=== PATIENT | male | born 1980 | race Caucasian/White ===

== ENCOUNTER 2016-11-04 14:40 | Inpatient (IN) | payer OTHER ==
[2016-11-04 15:53] VITALS: BMI 18.3
--- NOTE | 2016-11-04 17:11 | HP ---
CIWA Score - CIWA Score Nausea/Vomitin-Mild Nausea/No Vomiting Muscle Tremors: 4-Moderate,w/Arms Extend Anxiety: 4-Mod. Anxious/Guarded Agitation: 4-Moderately Restless Paroxysmal Sweats: 1-Minimal Palms Moist Orientation: 1-Uncertain about Date Tacttile Disturbances: 0-None Auditory Disturbances: 0-None Visual Disturbances: 0-None Headache: 0-None Present CIWA-Ar Total Score: 15 Admission ROS BHS - HPI Chief Complaint: withdrawal sx Allergies/Adverse Reactions: Allergies Allergy/AdvReac Type Severity Reaction Status Date / Time No Known Allergies Allergy Verified 11/05/16 00:43 History of Present Illness: 36 years old male with long history of alcohol nicotine dependence has bipolar ii and on methadone maintenance program 90 mg is admitted to detox Exam Limitations: No Limitations - Ebola screening Have you traveled outside of the country in the last 21 days: No Have you had contact with anyone from an Ebola affected area: No Have you been sick,other than usual withdrawal symptoms: No Do you have a fever: No - Review of Systems Constitutional: Chills, Loss of Appetite, Changes in sleep, Unintentional Wgt. Loss, Unexplained wgt Loss EENT: reports: No Symptoms Reported Respiratory: reports: No Symptoms reported Cardiac: reports: No Symptoms Reported GI: reports: Nausea, Poor Appetite, Poor Fluid Intake, Abdominal cramping : reports: No Symptoms Reported Musculoskeletal: reports: No Symptoms Reported Integumentary: reports: Change in Color (right inner elbow iv cocaine) Neuro: reports: Tremors Endocrine: reports: No Symptoms Reported Hematology: reports: No Symptoms Reported Psychiatric: reports: Judgement Intact, Depressed Other Systems: Reviewed and Negative Patient History - Patient Medical History Hx Anemia: No Hx Asthma: No Hx Chronic Obstructive Pulmonary Disease (COPD): No Hx Cancer: No Hx Cardiac Disorders: No Hx Congestive Heart Failure: No Hx Hypertension: No Hx Pacemaker: No HX Cerebrovascular Accident: No Hx Seizures: Yes (last 2010 alcohol related) Hx Dementia: No Hx Diabetes: No Hx Gastrointestinal Disorders: No Hx Liver Disease: No Hx Genitourinary Disorders: No Hx Sexually Transmitted Disorders: No Hx Renal Disease (ESRD): No Hx Thyroid Disease: No Hx Human Immunodeficiency Virus (HIV): No Hx Hepatitis C: Yes (partial tx 2000) Hx Depression: No Hx Suicide Attempt: Yes (2007 - tried to overdose, hospitalized) Hx Bipolar Disorder: Yes (hospitalized) Hx Schizophrenia: No - Patient Surgical History Past Surgical History: Yes Hx Neurologic Surgery: No Hx Cataract Extraction: No Hx Cardiac Surgery: No Hx Lung Surgery: No Hx Breast Surgery: No Hx Breast Biopsy: No Hx Appendectomy: Yes (age 18) Hx Cholecystectomy: No Hx Genitourinary Surgery: No Hx Orthopedic Surgery: No Anesthesia Reaction: No - PPD History Previous Implant?: Yes Documented Results: Negative w/proof Implanted On Prior [facility] Admission?: Yes Date: 03/31/16 PPD to be Administered?: No - Smoking Cessation Smoking history: Current every day smoker Have you smoked in the past 12 months: Yes Aproximately how many cigarettes per day: 4 Hx Chewing Tobacco Use: No Initiated information on smoking cessation: Yes 'Breaking Loose' booklet given: 11/04/16 - Substance & Tx. History Hx Alcohol Use: Yes Hx Substance Use: Yes Substance Use Type: Alcohol, Cocaine, Opiates Hx Substance Use Treatment: Yes - Substances Abused Cocaine Route: Injection Frequency: Daily Amount used: $10-20 Age of first use: 15 Date of Last Use: 11/03/16 Heroin Route: Injection Frequency: 1-2 times per week Amount used: 2 bags Age of first use: 15 Date of Last Use: 11/03/16 Alcohol-vodka Route: Oral Frequency: Daily Amount used: 2 pts. Age of first use: 19 Date of Last Use: 11/04/16 Family Disease History - Family Disease History Family Disease History: Diabetes: Grandparent, Other: Father (alive - psych problems), Mother (alive - no hx), Brother Admission Physical Exam S - Vital Signs Vital Signs: Vital Signs - 24 hr 11/04/16 15:51 Temperature 96.3 F L Pulse Rate 65 Respiratory 18 Rate Blood Pressure 113/69 - Physical General Appearance: Yes: Appropriately Dressed, Mild Distress, Thin, Tremorous, Irritable, Sweating, Anxious HEENTM: Yes: Hearing grossly Normal, Normal ENT Inspection, Normocephalic, Normal Voice Respiratory: Yes: Chest Non-Tender, Lungs Clear, Normal Breath Sounds, No Respiratory Distress, No Accessory Muscle Use Neck: Yes: Supple, Trachea in good position Breast: Yes: Breasts Symetrical Cardiology: Yes: Regular Rhythm, Regular Rate, S1, S2 Abdominal: Yes: Non Tender, Soft Genitourinary: Yes: Within Normal Limits Back: Yes: Normal Inspection Musculoskeletal: Yes: full range of Motion, Gait Steady, Back pain, Muscle Pain Extremities: Yes: Normal Inspection, Normal Range of Motion, Non-Tender, Tremors Neurological: Yes: Alert, Motor Strength 5/5, Normal Response, Depressed Affect Integumentary: Yes: Warm, Track [place] Lymphatic: Yes: Within Normal Limits - Diagnostic (1) Alcohol dependence with uncomplicated withdrawal Current Visit: Yes Status: Acute (2) Nicotine dependence Current Visit: Yes Status: Acute Qualifiers: Nicotine product type: cigarettes Substance use status: in withdrawal Qualified Code(s): F17.213 - Nicotine dependence, cigarettes, with withdrawal (3) Hepatitis C Current Visit: Yes Status: Resolved Qualifiers: Viral hepatitis chronicity: chronic Hepatic coma status: without hepatic coma Qualified Code(s): B18.2 - Chronic viral hepatitis C Comment: partial treatment in 2000 - unable to tolerate interferon so stopped (4) Methadone maintenance therapy patient Current Visit: Yes Status: Chronic Comment: 90 mg verification pending (5) Weight loss Current Visit: Yes Status: Acute (6) Bipolar II disorder Current Visit: Yes Status: Suspected Cleared for Admission S - Detox or Rehab [facility] Level of Care: Medically Managed Detox Regimen/Protocol: Librium S Breath Alcohol Content Breath Alcohol Content: 0 Vital Signs - Vital Signs Vital Signs Refused: No Temperature: 96.3 F Temperature Source: Oral Pulse Rate: 65 Respiratory Rate: 18 Blood Pressure: 113/69 BP Location: Left Arm Blood Pressure Position: Sitting - Height Height: 5 ft 8 in - Weight Weight: 121 lb Weight Measurement Method: Standing Scale Body Mass Index (BMI): 18.3 - Bowel Function Bowel Movement: Yes Urine Drug Screen - Control Is Test Valid: Yes - Results Drug Screen Negative: No Urine Drug Screen Results: MONA-Cocaine, OPI-Opiates, MTD-Methadone
[2016-11-04] MEDS ORDERED: MAGNESIUM CITRATE 300 ML BOTTLE PO PRN (17:21)
[2016-11-04] MEDS ORDERED: P-EPHED 60MG/TRIPROLIDI 2.5MG TABLET PO PRN (17:21)
[2016-11-04] MEDS ORDERED: diphenhydrAMINE HCL 50 MG CAPSULE PO PRN (17:21)
[2016-11-04] MEDS ORDERED: MAGNESIUM HYDROX 2400MG/30ML ORAL SUSPENSION 30 ML CUP PO PRN (17:21)
[2016-11-04] MEDS ORDERED: MAG HYDROX/AL HYDROX/SIMETH 30 ML UNIT-DOSE CUP PO PRN (17:21)
[2016-11-04] MEDS ORDERED: guaiFENesin/D-METHORPHAN HB 10 ML UNIT-DOSE CUPS PO PRN (17:21)
[2016-11-04] MEDS ORDERED: chlordiazePOXIDE HCL 25 MG CAPSULE PO PRN (17:21)
[2016-11-04] MEDS ORDERED: NICOTINE POLACRILEX 2 MG GUM BC PRN (17:21)
[2016-11-04] MEDS ORDERED: ACETAMINOPHEN 325 MG TABLET (FP) PO PRN (17:21)
[2016-11-04] MEDS ORDERED: MENTHOL/PHENOL 1 EACH UD MM PRN (17:21)
[2016-11-04] MEDS ORDERED: IBUPROFEN 400 MG TABLET (FP) PO PRN (17:21)
[2016-11-04] MEDS: chlordiazePOXIDE HCL 25 MG CAPSULE PO SCH (22:12)
[2016-11-04] MEDS: THIAMINE HCL 100 MG TABLET (FP) PO SCH (22:12)
[2016-11-04] MEDS ORDERED: chlordiazePOXIDE HCL 25 MG CAPSULE PO SCH (23:00)
[2016-11-05] MEDS: chlordiazePOXIDE HCL 25 MG CAPSULE PO SCH ×4 (05:37→22:11)
[2016-11-05] MEDS ORDERED: METHADONE HCL 40 MG DISPERSABLE TABLET PO SCH (07:15)
[2016-11-05] MEDS ORDERED: METHADONE HCL 10 MG TABLET ONE (07:27)
[2016-11-05] MEDS ORDERED: METHADONE HCL 40 MG DISPERSABLE TABLET ONE (07:27)
[2016-11-05] MEDS: METHADONE 80 MG, METHADONE 10 MG PO SCH (07:28)
[2016-11-05] MEDS: PRENATAL VITAMINS W/ FOLIC ACID TABLET (FP) PO SCH (10:17)
[2016-11-05] MEDS: NICOTINE 14 MG/24 HOURS TOPICAL PATCH TD SCH (10:17)
[2016-11-05 10:40] LABS: MCH 29.6 pg (25.7-33.7); MCHC 34.5 g/dl (32.0-35.9); MEAN CELL VOLUME 85.9 fl (80-96); MEAN PLT VOLUME 9.2 fl (7.5-11.1); PLATELET COUNT 183 K/MM3 (134-434); RDW 13.9 % (11.9-15.9); WHITE BLOOD COUNT 6.3 K/mm3 (4.0-10.0)
[2016-11-05 11:03] LABS: ALBUMIN 3.4 g/dl (3.4-5.0); ALK PHOS 120 U/L (45-117); ANION GAP 10 (8-16); BILIRUBIN,TOTAL 0.3 mg/dL (0.2-1.0); CALCIUM 8.9 mg/dL (8.5-10.1); CO2 25 mmol/L (21-32); COCKROFT - GAULT 88.08; CREATININE 0.9 mg/dL (0.7-1.3); GLUCOSE,RANDOM 90 mg/dL (74-106); SGOT/AST 47 U/L (15-37); SGPT/ALT 92 U/L (12-78); TOT PROT 6.1 g/dl (6.4-8.2)
--- NOTE | 2016-11-05 11:03 | EKG ---
Test Reason : Blood Pressure : / mmHG Vent. Rate : 062 BPM Atrial Rate : 062 BPM P-R Int : 156 ms QRS Dur : 092 ms QT Int : 438 ms P-R-T Axes : 071 063 025 degrees QTc Int : 444 ms NORMAL SINUS RHYTHM NORMAL ECG NO PREVIOUS ECGS AVAILABLE Confirmed by DEANN ACEVES, YA ([id number]) on 11/05/2016 11:03:12 AM Referred By: Confirmed By:YA ZACARIAS MD
--- NOTE | 2016-11-05 12:27 | PN ---
[facility] CIWA - CIWA Score Nausea/Vomitin-No Nausea/No Vomiting Muscle Tremors: 4-Moderate,w/Arms Extend Anxiety: 4-Mod. Anxious/Guarded Agitation: 3 Paroxysmal Sweats: 3 Orientation: 0-Oriented Tacttile Disturbances: 0-None Auditory Disturbances: 0-None Visual Disturbances: 0-None Headache: 0-None Present CIWA-Ar Total Score: 14 BHS Progress Note (SOAP) Subjective: Anxiety,tremors,sweating,interrupted sleep,restless Objective: 11/05/16 12:26 Vital Signs - 8 hr 11/05/16 11/05/16 06:31 09:16 Temperature 96.4 F L 97.0 F L Pulse Rate 65 67 Respiratory 16 18 Rate Blood Pressure 114/72 109/60 Laboratory Tests 11/05/16 11/05/16 11/05/16 07:30 07:30 07:30 WBC 6.3 RBC 4.64 Hgb 13.7 Hct 39.8 MCV 85.9 MCHC 34.5 RDW 13.9 Plt Count 183 D MPV 9.2 Sodium 143 Potassium 4.2 Chloride 108 H Carbon Dioxide 25 Anion Gap 10 BUN 17 D Creatinine 0.9 D Creat Clearance w eGFR > 60 Random Glucose 90 Calcium 8.9 Total Bilirubin 0.3 D AST 47 H D ALT 92 H D Alkaline Phosphatase 120 H D Total Protein 6.1 L Albumin 3.4 RPR Titer Nonreactive labs noted Assessment: 11/05/16 12:27 Withdrawal sx. Plan: Continue detox
--- NOTE | 2016-11-05 13:00 | CONSULT ---
[facility] Psychiatric Consult - Data Date of interview: 11/05/16 Admission source: [facility] Identifying data: Readmission to [facility] for this 36 y/o male seeking detox treatment on for opioid,cocaine and alcohol dependence.Patient is ,a father of one,domiciled,unemployed and supported on SSI benefits. Substance Abuse History: - Smoking Cessation. Smoking history: Current every day smoker. Have you smoked in the past 12 months: Yes. Aproximately how many cigarettes per day: 4. Hx Chewing Tobacco Use: No. Initiated information on smoking cessation: Yes. 'Breaking Loose' booklet given: 11/04/16. - Substance & Tx. History. Hx Alcohol Use: Yes. Hx Substance Use: Yes. Substance Use Type : Alcohol, Cocaine, Opiates. Hx Substance Use Treatment: Yes. Confirmed by patient. Medical History: Hepatitis C.Noted history of alcohol-related seizures (2010) and appendectomy at age 18. Psychiatric History: History of one psychiatric hospitalization (in 2000,at [facility]) in his lifetime.Diagnosed with Bipolar Disorder.Prescribed remeron and olanzapine.Mr De León is followed at [facility].He is currently on methadone maintenance (90 mg/day) at the [facility] MMTP program.He reports a history of two suicide attempts in 2005 ( overdose with heroin and hanging). Physical/Sexual Abuse/Trauma History: Patient denies. Additional Comment: Urine Drug Screen Results: MONA-Cocaine, OPI-Opiates, MTD- Methadone.Noted. Mental Status Exam - Mental Status Exam Alert and Oriented to: Time, Place, Person Cognitive Function: Good Patient Appearance: Well Groomed (thin frame) Mood: Withdrawn, Anxious, Apprehensive Affect: Mood Congruent, Constricted Patient Behavior: Fatigued, Appropriate, Cooperative Speech Pattern: Clear Voice Loudness: Normal Thought Process: Goal Oriented Thought Disorder: Not Present Hallucinations: Denies Suicidal Ideation: Denies Homicidal Ideation: Denies Insight/Judgement: Poor Sleep: Poorly, Difficulty falling asleep Appetite: Good Muscle strength/Tone: Normal Gait/Station: Normal Psychiatric Findings - Problem List ([place] 1, 2,3) (1) Alcohol dependence with uncomplicated withdrawal Current Visit: Yes Status: Acute (2) Cocaine dependence Current Visit: Yes Status: Acute Qualifiers: Substance use status: uncomplicated Qualified Code(s): F14.20 - Cocaine dependence, uncomplicated (3) Opioid dependence on agonist therapy Current Visit: Yes Status: Acute (4) Nicotine dependence Current Visit: Yes Status: Acute Qualifiers: Nicotine product type: cigarettes Substance use status: in withdrawal Qualified Code(s): F17.213 - Nicotine dependence, cigarettes, with withdrawal (5) Bipolar disorder Current Visit: Yes Status: Chronic (6) Weight loss Current Visit: Yes Status: Acute (7) Hepatitis C Current Visit: Yes Status: Resolved Qualifiers: Viral hepatitis chronicity: chronic Hepatic coma status: without hepatic coma Qualified Code(s): B18.2 - Chronic viral hepatitis C Comment: partial treatment in 2000 - unable to tolerate interferon so stopped - Initial Treatment Plan Initial Treatment Plan: Psychoeducation.Detoxification.Medications :
[2016-11-05 16:32] LABS: URINE APPEARANCE CLEAR; URINE BILIRUBIN NEGATIVE (NEGATIVE); URINE BLOOD NEGATIVE (NEGATIVE); URINE COLOR DKYELLOW; URINE GLUCOSE (UA) NEGATIVE (NEGATIVE); URINE KETONE NEGATIVE (NEGATIVE); URINE LEUK ESTERASE NEGATIVE (NEGATIVE); URINE NITRITE NEGATIVE (NEGATIVE); URINE PROTEIN NEGATIVE (NEGATIVE); URINE UROBILINOGEN NEGATIVE E.U./dl (0.2-1.0)
[2016-11-05] MEDS: MIRTAZAPINE 15 MG TABLET (FP) PO SCH (22:11)
[2016-11-05] MEDS: THIAMINE HCL 100 MG TABLET (FP) PO SCH (22:11)
[2016-11-06] MEDS ORDERED: METHADONE HCL 10 MG TABLET ONE (03:36)
[2016-11-06] MEDS ORDERED: METHADONE HCL 40 MG DISPERSABLE TABLET ONE (03:36)
[2016-11-06] MEDS: chlordiazePOXIDE HCL 25 MG CAPSULE PO SCH ×3 (05:33→17:13)
[2016-11-06] MEDS: METHADONE 80 MG, METHADONE 10 MG PO SCH (05:33)
[2016-11-06] MEDS: PRENATAL VITAMINS W/ FOLIC ACID TABLET (FP) PO SCH (10:16)
[2016-11-06] MEDS: NICOTINE 14 MG/24 HOURS TOPICAL PATCH TD SCH (10:16)
--- NOTE | 2016-11-06 15:12 | PN ---
[facility] CIWA - CIWA Score Nausea/Vomitin-Mild Nausea/No Vomiting Muscle Tremors: 4-Moderate,w/Arms Extend Anxiety: 3 Agitation: 3 Paroxysmal Sweats: 3 Orientation: 0-Oriented Tacttile Disturbances: 0-None Auditory Disturbances: 0-None Visual Disturbances: 0-None Headache: 0-None Present CIWA-Ar Total Score: 14 S Progress Note (SOAP) Subjective: Anxiety,tremors,sweating,interrupted sleep,restless Objective: 11/06/16 15:11 Vital Signs - 8 hr 11/06/16 11/06/16 09:25 13:27 Temperature 96.6 F L 96.3 F L Pulse Rate 58 L 63 Respiratory 18 16 Rate Blood Pressure 97/66 102/63 Laboratory Last Values WBC 6.3 K/mm3 (4.0-10.0) 11/05/16 07:30 RBC 4.64 M/mm3 (4.00-5.60) 11/05/16 07:30 Hgb 13.7 GM/dL (11.7-16.9) 11/05/16 07:30 Hct 39.8 % (35.4-49) 11/05/16 07:30 MCV 85.9 fl (80-96) 11/05/16 07:30 MCHC 34.5 g/dl (32.0-35.9) 11/05/16 07:30 RDW 13.9 % (11.9-15.9) 11/05/16 07:30 Plt Count 183 K/MM3 (134-434) D 11/05/16 07:30 MPV 9.2 fl (7.5-11.1) 11/05/16 07:30 Sodium 143 mmol/L (136-145) 11/05/16 07:30 Potassium 4.2 mmol/L (3.5-5.1) 11/05/16 07:30 Chloride 108 mmol/L (98-107) H 11/05/16 07:30 Carbon Dioxide 25 mmol/L (21-32) 11/05/16 07:30 Anion Gap 10 (8-16) 11/05/16 07:30 BUN 17 mg/dL (7-18) D 11/05/16 07:30 Creatinine 0.9 mg/dL (0.7-1.3) D 11/05/16 07:30 Creat Clearance w eGFR > 60 (>60) 11/05/16 07:30 Random Glucose 90 mg/dL (74-106) 11/05/16 07:30 Calcium 8.9 mg/dL (8.5-10.1) 11/05/16 07:30 Total Bilirubin 0.3 mg/dL (0.2-1.0) D 11/05/16 07:30 AST 47 U/L (15-37) H D 11/05/16 07:30 ALT 92 U/L (12-78) H D 11/05/16 07:30 Alkaline Phosphatase 120 U/L (45-117) H D 11/05/16 07:30 Total Protein 6.1 g/dl (6.4-8.2) L 11/05/16 07:30 Albumin 3.4 g/dl (3.4-5.0) 11/05/16 07:30 Urine Color Dkyellow 11/05/16 15:57 Urine Appearance Clear 11/05/16 15:57 Urine pH 5.0 (5.0-8.0) 11/05/16 15:57 Ur Specific [place] > 1.030 (1.001-1.035) 11/05/16 15:57 Urine Protein Negative (NEGATIVE) 11/05/16 15:57 Urine Glucose (UA) Negative (NEGATIVE) 11/05/16 15:57 Urine Ketones Negative (NEGATIVE) 11/05/16 15:57 Urine Blood Negative (NEGATIVE) 11/05/16 15:57 Urine Nitrite Negative (NEGATIVE) 11/05/16 15:57 Urine Bilirubin Negative (NEGATIVE) 11/05/16 15:57 Urine Urobilinogen Negative E.U./dl (0.2-1.0) 11/05/16 15:57 Ur Leukocyte Esterase Negative (NEGATIVE) 11/05/16 15:57 RPR Titer Nonreactive (NONREACTIVE) 11/05/16 07:30 labs noted Assessment: 11/06/16 15:11 Withdrawal sx. Plan: Continue detox
[2016-11-06] MEDS: chlordiazePOXIDE 5 MG CAPSULE PO SCH (22:19)
[2016-11-06] MEDS: THIAMINE HCL 100 MG TABLET (FP) PO SCH (22:19)
[2016-11-06] MEDS: MIRTAZAPINE 15 MG TABLET (FP) PO SCH (22:19)
[2016-11-07] MEDS ORDERED: METHADONE HCL 10 MG TABLET ONE (03:51)
[2016-11-07] MEDS ORDERED: METHADONE HCL 40 MG DISPERSABLE TABLET ONE (03:52)
[2016-11-07] MEDS: chlordiazePOXIDE 5 MG CAPSULE PO SCH ×3 (05:48→17:13)
[2016-11-07] MEDS: METHADONE 80 MG, METHADONE 10 MG PO SCH (05:48)
[2016-11-07] MEDS: NICOTINE 14 MG/24 HOURS TOPICAL PATCH TD SCH (10:15)
[2016-11-07] MEDS: PRENATAL VITAMINS W/ FOLIC ACID TABLET (FP) PO SCH (10:15)
--- NOTE | 2016-11-07 11:51 | PN ---
BHS Progress Note (SOAP) Subjective: ANXIETY,IRRITABILITY,FATIGUE. Objective: 11/07/16 11:50 Vital Signs Temperature 97.0 F L 11/07/16 10:30 Pulse Rate 67 11/07/16 10:30 Respiratory Rate 18 11/07/16 10:30 Blood Pressure 99/63 11/07/16 10:30 O2 Sat by Pulse Oximetry (%) Assessment: 11/07/16 11:50 WITHDRAWAL SX Plan: CONTINUE DETOX INCREASE PO FLUIDS
[2016-11-07] MEDS: THIAMINE HCL 100 MG TABLET (FP) PO SCH (22:17)
[2016-11-07] MEDS: chlordiazePOXIDE HCL 10 MG CAPSULE PO SCH (22:17)
[2016-11-07] MEDS: MIRTAZAPINE 15 MG TABLET (FP) PO SCH (22:17)
[2016-11-08] MEDS: LOPERAMIDE HCL 2 MG CAPSULE PO PRN ×2 (01:51→07:57)
[2016-11-08] MEDS ORDERED: METHADONE HCL 10 MG TABLET ONE (03:36)
[2016-11-08] MEDS ORDERED: METHADONE HCL 40 MG DISPERSABLE TABLET ONE (03:36)
[2016-11-08] MEDS: METHADONE 80 MG, METHADONE 10 MG PO SCH (05:53)
[2016-11-08] MEDS: chlordiazePOXIDE HCL 10 MG CAPSULE PO SCH (05:53)
[2016-11-08 06:41] VITALS: BP 101/66; PULSE 67; TEMP 96.8
--- NOTE | 2016-11-08 16:08 | DS ---
[facility] Detox Discharge Summary Admission Date: 11/04/16 Discharge Date: 11/08/16 - History Present History: Alcohol Dependence, MMTP Pertinent Past History: Seizures (ETOH-Related), Hep C, Bipolar disorder, MMTP Patient. - Physical Exam Results Vital Signs: Vital Signs Temperature 96.8 F L 11/08/16 06:41 Pulse Rate 67 11/08/16 06:41 Respiratory Rate 16 11/08/16 06:41 Blood Pressure 101/66 11/08/16 06:41 O2 Sat by Pulse Oximetry (%) Pertinent Admission Physical Exam Findings: WITHDRAWAL SYMPTOMS. Laboratory Last Values WBC 6.3 K/mm3 (4.0-10.0) 11/05/16 07:30 RBC 4.64 M/mm3 (4.00-5.60) 11/05/16 07:30 Hgb 13.7 GM/dL (11.7-16.9) 11/05/16 07:30 Hct 39.8 % (35.4-49) 11/05/16 07:30 MCV 85.9 fl (80-96) 11/05/16 07:30 MCHC 34.5 g/dl (32.0-35.9) 11/05/16 07:30 RDW 13.9 % (11.9-15.9) 11/05/16 07:30 Plt Count 183 K/MM3 (134-434) D 11/05/16 07:30 MPV 9.2 fl (7.5-11.1) 11/05/16 07:30 Sodium 143 mmol/L (136-145) 11/05/16 07:30 Potassium 4.2 mmol/L (3.5-5.1) 11/05/16 07:30 Chloride 108 mmol/L (98-107) H 11/05/16 07:30 Carbon Dioxide 25 mmol/L (21-32) 11/05/16 07:30 Anion Gap 10 (8-16) 11/05/16 07:30 BUN 17 mg/dL (7-18) D 11/05/16 07:30 Creatinine 0.9 mg/dL (0.7-1.3) D 11/05/16 07:30 Creat Clearance w eGFR > 60 (>60) 11/05/16 07:30 Random Glucose 90 mg/dL (74-106) 11/05/16 07:30 Calcium 8.9 mg/dL (8.5-10.1) 11/05/16 07:30 Total Bilirubin 0.3 mg/dL (0.2-1.0) D 11/05/16 07:30 AST 47 U/L (15-37) H D 11/05/16 07:30 ALT 92 U/L (12-78) H D 11/05/16 07:30 Alkaline Phosphatase 120 U/L (45-117) H D 11/05/16 07:30 Total Protein 6.1 g/dl (6.4-8.2) L 11/05/16 07:30 Albumin 3.4 g/dl (3.4-5.0) 11/05/16 07:30 Urine Color Dkyellow 11/05/16 15:57 Urine Appearance Clear 11/05/16 15:57 Urine pH 5.0 (5.0-8.0) 11/05/16 15:57 Ur Specific [place] > 1.030 (1.001-1.035) 11/05/16 15:57 Urine Protein Negative (NEGATIVE) 11/05/16 15:57 Urine Glucose (UA) Negative (NEGATIVE) 11/05/16 15:57 Urine Ketones Negative (NEGATIVE) 11/05/16 15:57 Urine Blood Negative (NEGATIVE) 11/05/16 15:57 Urine Nitrite Negative (NEGATIVE) 11/05/16 15:57 Urine Bilirubin Negative (NEGATIVE) 11/05/16 15:57 Urine Urobilinogen Negative E.U./dl (0.2-1.0) 11/05/16 15:57 Ur Leukocyte Esterase Negative (NEGATIVE) 11/05/16 15:57 RPR Titer Nonreactive (NONREACTIVE) 11/05/16 07:30 LABS NOTED. - Treatment Hospital Course: Detox Protocol Followed, Detoxed Safely, Responded well, Discharged Condition Good Patient has Accepted a Rehab Referral to: NO - PT. ELECTING TO GO HOME AT THIS TIME. AA/12-STEP PROGRAMS RECOMMENDED. - Medication Discharge Medications: Ambulatory Orders Mirtazapine [Remeron -] 15 mg PO HS 11/04/16 Mirtazapine [Remeron -] 15 mg PO HS #30 tablet 11/05/16 - Diagnosis (1) Alcohol dependence with uncomplicated withdrawal Status: Acute (2) Nicotine dependence Status: Chronic Qualifiers: Nicotine product type: cigarettes Substance use status: in withdrawal Qualified Code(s): F17.213 - Nicotine dependence, cigarettes, with withdrawal (3) Opioid dependence on agonist therapy Status: Chronic (4) Weight loss Status: Acute (5) Bipolar disorder Status: Chronic Qualifiers: Active/Remission status: remission status unspecified Qualified Code (s): F31.9 - Bipolar disorder, unspecified (6) History of seizure Status: Chronic (7) Methadone maintenance therapy patient Status: Chronic (8) Cocaine dependence Status: Acute Qualifiers: Substance use status: uncomplicated Qualified Code(s): F14.20 - Cocaine dependence, uncomplicated - AMA Did Patient Leave Against Medical Advice: No
== END 2016-11-08 09:45 | disposition home or self-care (01) | DRG 774 ==
LOC: YASAS 14:40 → Y3N 17:46
PROVIDERS: ADMIT Internal Medicine; ATTEND Internal Medicine
PROC: HZ2ZZZZ Detoxification Services for Substance Abuse Treatment (ICD-10-PCS; principal; 2016-11-08)
DX: F10.230 Alcohol dependence with withdrawal, uncomplicated (principal); F14.20 Cocaine dependence, uncomplicated; F31.9 Bipolar disorder, unspecified; G40.909 Epilepsy, unspecified, not intractable, without status epilepticus; B18.2 Chronic viral hepatitis C; R63.4 Abnormal weight loss; Z68.1 Body mass index [BMI] 19.9 or less, adult
CPT/HCPCS: 36415; 80053; 81003; 85027; 86593; 93005; 93010